=== PATIENT | female | born 1970 | race Caucasian/White ===

== ENCOUNTER 2021-12-13 07:07 | Day surgery (SDC) | payer OTHER ==
[~2021-12-13 07:07] MED LIST: Acetaminophen 325 MG Tab PO SCH; Lactated Ringers 1,000 ML IV SCH; Lidocaine 1%/Sod Bicarbonate in NS 8.4% 1 ML Syringe IDERM PRN; Morphine 8 MG, EPINEPHrine 0.3 MG, Cefuroxime 750 MG, Ketorolac 30 MG, Sodium Chloride ... PRN; Pregabalin 25 MG Cap PO SCH; Sodium Chloride 0.9% 10 ML Syringe FLUSH PRN; Sodium Chloride 0.9% 10 ML Syringe FLUSH SCH; Vancomycin 1 GM SDV ONE; oxyCODONE ER 10 MG TAB.ER PO SCH
[2021-12-13] MEDS ORDERED: Dexmedetomidine 200 MCG/2 ML SDV ONE (08:08)
[2021-12-13] MEDS ORDERED: Ropivacaine 0.5% 5 MG/ML 30 ML SDV ONE (08:09)
[2021-12-13] MEDS ORDERED: Lidocaine 1% 4 ML ONE (08:15)
[2021-12-13] MEDS ORDERED: Dexamethasone 4 MG/ML 5 ML MDV ONE (08:15)
[2021-12-13] MEDS ORDERED: Midazolam 1 MG/ML 2 ML SDV ONE ×2 (08:20→09:58)
[2021-12-13] MEDS ORDERED: Propofol 200 MG/20 ML SDV ONE ×2 (08:20→10:09)
[2021-12-13] MEDS ORDERED: fentaNYL 100 MCG/2 ML SDV ONE (08:20)
[2021-12-13] MEDS ORDERED: ceFAZolin 2 GM Vial ONE (09:29)
[2021-12-13] MEDS ORDERED: Phenylephrine HCl In 0.9% NaCl 1 MG/10 ML Vial ONE ×2 (09:29→10:32)
[2021-12-13] MEDS ORDERED: Ketamine 500 mg/10 ML MDV ONE (09:36)
[2021-12-13] MEDS ORDERED: fentaNYL 100 MCG/2 ML SDV IVPUSH PRN (09:49)
[2021-12-13] MEDS ORDERED: HYDROmorphone 0.5 MG/0.5 ML Syringe IVPUSH PRN (09:49)
[2021-12-13] MEDS ORDERED: Lactated Ringers 1,000 ML ONE (10:05)
[2021-12-13] MEDS ORDERED: Ondansetron 4 MG/2 ML SDV ONE (10:26)
[2021-12-13] MEDS ORDERED: oxyCODONE 5 MG Tab PO SCH (13:29)
== END 2021-12-13 13:47 | disposition home or self-care (01) ==
LOC: JD.SDS 07:07
PROVIDERS: ATTEND Orthopaedic Surgery
DX: M17.12 Unilateral primary osteoarthritis, left knee (principal); I10 Essential (primary) hypertension; F41.9 Anxiety disorder, unspecified; I25.10 Atherosclerotic heart disease of native coronary artery without angina pectoris; I26.99 Other pulmonary embolism without acute cor pulmonale; G62.9 Polyneuropathy, unspecified; I21.4 Non-ST elevation (NSTEMI) myocardial infarction; E78.00 Pure hypercholesterolemia, unspecified; E66.9 Obesity, unspecified; D64.9 Anemia, unspecified; F17.210 Nicotine dependence, cigarettes, uncomplicated; Z79.899 Other long term (current) drug therapy; Z79.01 Long term (current) use of anticoagulants; Z88.8 Allergy status to other drugs, medicaments and biological substances; Z91.048 Other nonmedicinal substance allergy status; Z90.49 Acquired absence of other specified parts of digestive tract; Z98.890 Other specified postprocedural states; Z01.818 Encounter for other preprocedural examination; Z68.42 Body mass index [BMI] 45.0-49.9, adult
CPT/HCPCS: 0055T; 27447; 36415; 73560; 85610; 85730; 97110; 97116; 97161; A9270; C1713; C1776; J0171; J0690; J0697; J1100; J1885; J2250; J2270; J2405; J2704; J2795; J3010; J3370; J3490; J7120; 01402; 64450; 76942